=== PATIENT | female | born 1940 | race Caucasian/White ===

== ENCOUNTER → 2025-01-27 08:51 | Outpatient (REF) | payer OTHER, SELFPAY | LOC: WDC 08:51 | PROVIDERS: ATTENDING PHYSICIAN Family Medicine | DX: N63.32 Unspecified lump in axillary tail of the left breast (principal); R22.32 Localized swelling, mass and lump, left upper limb | CPT/HCPCS: 76642; 77062; 77066 ==

== ENCOUNTER → 2025-02-01 09:40 | Outpatient (REF) | payer OTHER, SELFPAY ==
--- NOTE | 2025-02-01 13:49 | OID.BR.INTR ---
[facility] Breast Navigator - Initial
- -
Date of Contact: 02/01/25
Met with patient. Patient given written information on navigator services and support services available. Will follow up as needed per protocol.
== END ==
LOC: WDC 09:40
PROVIDERS: ATTENDING PHYSICIAN Surgery; FAMILY PHYSICIAN Family Medicine
DX: N63.32 Unspecified lump in axillary tail of the left breast (principal)
CPT/HCPCS: 88305; 19083; 19084; 88341; 88342; 88360; A4648

== ENCOUNTER → 2025-07-31 07:37 | Outpatient (REF) | payer OTHER, SELFPAY | LOC: WDC 07:37 | PROVIDERS: ATTENDING PHYSICIAN Internal Medicine Hematology & Oncology; FAMILY PHYSICIAN Family Medicine | DX: R92.8 Other abnormal and inconclusive findings on diagnostic imaging of breast (principal) | CPT/HCPCS: 76642 ==